=== PATIENT | female | born 1995 | race Caucasian/White ===

== ENCOUNTER 2017-09-19 08:11 | Emergency (ER) | payer BC ==
[2017-09-19 08:40] VITALS: BP 132/73
[2017-09-19 08:47] LABS: ABSOLUTE EOSINOPHILS # (AUTO) 0.1 10^3/uL (0.0-0.6); ABSOLUTE LYMPHOCYTES (AUTO) 1.9 10^3/uL (0.5-4.7); ABSOLUTE MONOCYTES (AUTO) 0.3 10^3/uL (0.1-1.4); ABSOLUTE NEUT (AUTO) 3.2 10^3/uL (1.7-8.2); BASOPHILS % (AUTO) 0.6 % (0-2); HEMATOCRIT 42.1 % (36.0-47.0); HEMOGLOBIN 14.8 g/dL (12.0-15.5); HGB HCT DIFFERENCE 2.3; LYMPHOCYTES % (AUTO) 34.7 % (13-45); MEAN CORPUSCULAR HEMOGLOBIN 31.8 pg (27.0-33.4); MEAN CORPUSCULAR HGB CONC 35.1 g/dL (32.0-36.0); MEAN CORPUSCULAR VOLUME 91 fl (80-97); MONOCYTES % (AUTO) 5.1 % (3-13); RED BLOOD COUNT 4.65 10^6/uL (3.72-5.28); RED CELL DISTRIBUTION WIDTH 12.4 % (11.5-14.0); SEGMENTED NEUTROPHILS % (AUTO) 57.6 % (42-78); WHITE BLOOD COUNT 5.6 10^3/uL (4.0-10.5)
[2017-09-19 09:09] LABS: ALANINE AMINOTRANSFERASE 31 U/L (9-52); ALBUMIN 4.7 g/dL (3.5-5.0); ALKALINE PHOSPHATASE 43 U/L (38-126); ANION GAP 18 (5-19); ASPARTATE AMINO TRANSFERASE 17 U/L (14-36); BILIRUBIN,DIRECT 0.3 mg/dL (0.0-0.4); BILIRUBIN,TOTAL 0.8 mg/dL (0.2-1.3); BLOOD UREA NITROGEN 8 mg/dL (7-20); CALCIUM 9.8 mg/dL (8.4-10.2); CARBON DIOXIDE 18 mmol/L (22-30); CHLORIDE 107 mmol/L (98-107); CREATININE RESULT 0.62 mg/dL (0.52-1.25); GLUCOSE 84 mg/dL (75-110); SODIUM 142.7 mmol/L (137-145); TOTAL PROTEIN 7.2 g/dL (6.3-8.2)
--- NOTE | 2017-09-19 09:32 | ER Document Report ---
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 Patient states that she cleanse the wound after about 10 minutes. Patient states that the patient denied any known history of HIV. Patient states that she has had the hepatitis vaccination. TRAVEL OUTSIDE OF THE [place] IN LAST 30 DAYS: No - HPI Exposure: Penetrating Occurred: Just prior to arrival Quality of pain: No pain Pain Level: Denies Context: Needle stick (hollow), Health care activity Is patient an employee: No Referred to employee health: No Past Medical History - General Information source: Patient - Social History Smoking Status: Never Smoker Chew tobacco use (# tins/day): No Frequency of alcohol use: None Drug Abuse: None Occupation: EMS student Family History: Reviewed & Not Pertinent Patient has suicidal ideation: No Patient has homicidal ideation: No Pulmonary Medical History: Reports: Hx Asthma Renal/ Medical History: Denies: Hx Peritoneal Dialysis Surgical Hx: Negative Review of Systems - Review of Systems Constitutional: No symptoms reported. denies: Fever EENT: No symptoms reported Cardiovascular: No symptoms reported Respiratory: No symptoms reported Gastrointestinal: No symptoms reported Genitourinary: No symptoms reported Female Genitourinary: No symptoms reported Musculoskeletal: No symptoms reported Skin: Other - Puncture wound to tip of right second finger Hematologic/Lymphatic: No symptoms reported Neurological/Psychological: No symptoms reported Physical Exam - Vital signs Vitals: Temp Pulse Resp BP Pulse Ox 98.3 F 86 20 132/73 H 98 09/19/17 08:34 09/19/17 08:34 09/19/17 08:34 09/19/17 08:34 09/19/17 08:34 - General General appearance: Appears well, Alert In distress: None - HEENT Head: Normocephalic, Atraumatic Eyes: Normal Conjunctiva: Normal Nasal: Normal Mouth/Lips: Normal - Respiratory Respiratory status: No respiratory distress Chest status: Nontender Breath sounds: Normal. No: Rales, Rhonchi, Stridor, Wheezing Chest palpation: Normal - Cardiovascular Rhythm: Regular Heart sounds: S1 appreciated, S2 appreciated Murmur: No Pulses: Normal: Radial - Back Back: Normal - Extremities General upper extremity: Normal strength, Other - Faint puncture wound to the tip of right second finger General lower extremity: Normal inspection, Normal strength - Neurological Neuro grossly intact: Yes Cognition: Normal [place] Coma Scale Eye Opening: Spontaneous [place] Coma Scale Verbal: Oriented [place] Coma Scale Motor: Obeys Commands [place] Coma Scale Total: 15 - Psychological Associated symptoms: Normal affect, Normal mood - Skin Skin Temperature: Warm Skin Moisture: Dry Skin Color: Normal Skin irregularity: other - Puncture wound Location of irregularity: Extremities - Right second fingertip Course - Re-evaluation Re-evalutation: 09/19/17 09:37 This provider spoke with source patient who was willing to have her blood drawn for HIV testing. Source patient denies any history of HIV or any immediate concerns about HIV infection. Source patient denies any history of IV drug use and states that previous sexual partner did not have sex with men and was not on IV drug user himself. 09/19/17 10:29 source pt HIV neg. discussed with patient treatment options. Discussed low risk of HIV transmission at this time and decision was jointly made to defer any post exposure prophylaxis antiviral medication at this time. Patient advised that she will need additional HIV testing at 6 weeks, 3 months in 6 months. Patient verbalized understanding and agrees with plan of care. 09/19/17 10:33 Patient's tetanus immunization is currently up-to-date - Vital Signs Vital signs: Temp Pulse Resp BP Pulse Ox 98.3 F 86 20 132/73 H 98 09/19/17 08:34 09/19/17 08:34 09/19/17 08:34 09/19/17 08:34 09/19/17 08:34 - Laboratory Result Diagrams: 09/19/17 08:28 09/19/17 08:28 Laboratory results interpreted by me: 09/19/17 08:28 Carbon Dioxide 18 L 09/19/17 10:30 Labs- Entire Visit 09/19/17 09/19/17 09/19/17 08:28 08:28 08:28 WBC 5.6 RBC 4.65 Hgb 14.8 Hct 42.1 MCV 91 MCH 31.8 MCHC 35.1 RDW 12.4 Plt Count 241 Seg Neutrophils % 57.6 Lymphocytes % 34.7 Monocytes % 5.1 Eosinophils % 2.0 Basophils % 0.6 Absolute Neutrophils 3.2 Absolute Lymphocytes 1.9 Absolute Monocytes 0.3 Absolute Eosinophils 0.1 Absolute Basophils 0.0 Sodium 142.7 Potassium 4.0 Chloride 107 Carbon Dioxide 18 L Anion Gap 18 BUN 8 Creatinine 0.62 Est GFR ( Amer) > 60 Est GFR (Non-Af Amer) > 60 Glucose 84 Calcium 9.8 Total Bilirubin 0.8 Direct Bilirubin 0.3 Neonat Total Bilirubin Not Reportable Neonat Direct Bilirubin Not Reportable Neonat Indirect Bili Not Reportable AST 17 ALT 31 Alkaline Phosphatase 43 Total Protein 7.2 Albumin 4.7 Serum HCG, Qual NEGATIVE HIV 1&2 Antibody 09/19/17 08:28 WBC RBC Hgb Hct MCV MCH MCHC RDW Plt Count Seg Neutrophils % Lymphocytes % Monocytes % Eosinophils % Basophils % Absolute Neutrophils Absolute Lymphocytes Absolute Monocytes Absolute Eosinophils Absolute Basophils Sodium Potassium Chloride Carbon Dioxide Anion Gap BUN Creatinine Est GFR ( Amer) Est GFR (Non-Af Amer) Glucose Calcium Total Bilirubin Direct Bilirubin Neonat Total Bilirubin Neonat Direct Bilirubin Neonat Indirect Bili AST ALT Alkaline Phosphatase Total Protein Albumin Serum HCG, Qual HIV 1&2 Antibody NEGATIVE Discharge - Discharge Clinical Impression: Needle stick injury of finger of right hand Qualifiers: Encounter type: initial encounter Qualified Code(s): S61.239A - Puncture wound without foreign body of unspecified finger without damage to nail, initial encounter Condition: Stable Disposition: HOME, SELF-CARE Instructions: Puncture Wound ([facility]) Additional Instructions: Return immediately for any new or worsening symptoms Followup with your primary care provider, call tomorrow to make a followup appointment You will need additional HIV testing at 6 weeks, 3 months in 6 months for further evaluation. You can see your primary doctor about this or go to the health department for additional testing [facility] - Follow up as needed
[2017-09-19 09:48] LABS: ADD HIVPANEL? NO; HIV (1 AND 2) ANTIBODY NEGATIVE (NEGATIVE)
== END 2017-09-19 12:16 | disposition home or self-care (01) ==
LOC: ER 08:11
DX: S61.230A Puncture wound without foreign body of right index finger without damage to nail, initial encounter (principal); W46.1XXA Contact with contaminated hypodermic needle, initial encounter; Y99.8 Other external cause status; J45.909 Unspecified asthma, uncomplicated
CPT/HCPCS: 36415; 80053; 80074; 84703; 85025; 86701; 99283